=== PATIENT | male | born 1980 | race Caucasian/White ===

== ENCOUNTER 2017-09-14 23:04 | Emergency (ER) | payer OTHER ==
[~2017-09-14] VITALS: Ht 172.7 cm; Wt 88.5 kg
[2017-09-14 23:17] VITALS: Ht 172.7 cm; Wt 88.5 kg
[2017-09-15 00:41] LABS: CALCIUM 8.5 mg/dL (8.5-10.1); CARBON DIOXIDE 25.4 mmol/L (21-32); CHLORIDE SERUM 103 mmol/L (98-107); GFR1 > 60 mL/min; GLUCOSE SERUM 113 mg/dL (74-106); POTASSIUM SERUM 3.6 mmol/L (3.5-5.1); SODIUM SERUM 139 mmol/L (136-145)
[2017-09-15 00:47] LABS: ALBUMIN 3.8 g/dL (3.4-5.0); ALKALINE PHOSPHATASE 107 U/L (46-116); ALT/SGPT 57 U/L (16-63); AST/SGOT 26 U/L (15-37); BILIRUBIN TOTAL 0.3 mg/dL (0.20-1.00); TOTAL PROTEIN, SERUM 7.7 g/dL (6.4-8.2)
[2017-09-15 00:53] LABS: BASOPHIL % 0.9 % (0-2); PLATELET COUNT 481 x10^3mcL (130-400); RED CELL DISTRIBUTION WIDTH 16.4 % (11.5-14.5)
[2017-09-15 01:38] LABS: microscopic required? NO
[2017-09-15 02:00] LABS: UA SPECIFIC GRAVITY 1.015 (1.005-1.035); urine erythrocyte NEGATIVE (NEGATIVE)
[2017-09-15 02:17] LABS: AMPHETAMINE QUAL UR POSITIVE (NEG <=1000)
[2017-09-15 07:45] VITALS: BP 127/78
== END 2017-09-15 07:56 | disposition short-term general hospital (02) ==
LOC: ED 23:04
PROVIDERS: Emergency Medicine
DX: F10.239 Alcohol dependence with withdrawal, unspecified (principal); F15.90 Other stimulant use, unspecified, uncomplicated; F32.9 Major depressive disorder, single episode, unspecified; F41.9 Anxiety disorder, unspecified
CPT/HCPCS: G0480; J2060; J7030

== ENCOUNTER 2019-02-05 23:26 | Emergency (ER) | payer OTHER ==
[~2019-02-05] VITALS: Ht 172.7 cm; Wt 95.3 kg
[2019-02-06 00:11] VITALS: Ht 172.7 cm; Wt 95.3 kg
[2019-02-06 00:20] VITALS: BP 131/83
== END 2019-02-06 00:20 | disposition home or self-care (01) ==
LOC: ED 23:26
DX: F10.20 Alcohol dependence, uncomplicated (principal); F32.9 Major depressive disorder, single episode, unspecified; F41.9 Anxiety disorder, unspecified; Z98.890 Other specified postprocedural states
CPT/HCPCS: J2060